=== PATIENT | male | born 1990 | race Caucasian/White ===

== ENCOUNTER 2024-08-15 12:07 | Inpatient (IN) | payer SELFPAY ==
[~2024-08-15] VITALS: Ht 177.8 cm; Wt 72.1 kg
[2024-08-15] VITALS (10 sets, daily range): BP systolic 100–143; BP diastolic 42–84; PULSE 63–92; RESP 16–20; TEMP 36.5–37.4; O2SAT 96–99
[2024-08-15] MEDS: MORPHINE SULFATE 4 MG/ML INJ (FOR IV/IM USE) IV STA (12:39)
[2024-08-15 12:40] LABS: BASOPHILS % 0.4 % (0.0-2.0); EOSINOPHILS % 0.2 % (0.0-5.0); HEMATOCRIT. 43.7 % (42.0-52.0); HEMOGLOBIN. 14.8 g/dL (14.0-18.0); LYMPHOCYTES % 16.2 % (20.0-50.0); MEAN CORPUSCULAR HEMOGLOBIN 27.2 pg (28.0-32.0); MEAN CORPUSCULAR HGB CONC 33.9 g/dL (31.0-37.0); MEAN CORPUSCULAR VOLUME 80.1 fL (80.0-94.0); MEAN PLATELET VOLUME 9.6 fl (7.4-10.4); MONOCYTES % 3.5 % (2.0-8.0); NEUTROPHILS % 79.7 % (40.0-76.0); PLATELET 211 x1000/uL (130-400); RED BLOOD CELL COUNT 5.46 mill/uL (4.7-6.1); RED CELL DISTRIBUTION WIDTH 14.7 % (11.6-14.6); WHITE BLOOD COUNT 12.1 x1000/uL (4.5-11.0)
[2024-08-15] MEDS: ONDANSETRON HCL 4MG/2ML INJ IV STA (12:40)
[2024-08-15 12:46] LABS: CHLORIDE 106 mEq/L (98-107); POTASSIUM 3.2 mEq/L (3.5-5.1); SODIUM 137 mEq/L (136-145)
[2024-08-15 12:47] LABS: CARBON DIOXIDE 20 mEq/L (21-32)
[2024-08-15 12:48] LABS: CALCIUM 9.3 mg/dL (8.7-10.4)
[2024-08-15 12:52] LABS: CREATININE 0.9 mg/dL (0.6-1.3)
[2024-08-15 12:53] LABS: GLUCOSE 152 mg/dL (70-105); UREA NITROGEN BLOOD 17 mg/dL (9-23)
[2024-08-15 12:54] LABS: ALANINE AMINOTRANSFERASE 38 IU/L (10-49); ASPARTATE AMINOTRANSFERASE 23 IU/L (<34)
[2024-08-15 12:55] LABS: ALBUMIN 4.7 g/dL (3.2-4.8); BILIRUBIN DIRECT 0.2 mg/dL (<=3.0); BILIRUBIN TOTAL 0.8 mg/dL (0.1-1.0); PROTEIN TOTAL 8.1 g/dL (6.0-8.3)
[2024-08-15 12:58] LABS: TROPONIN I HIGH SENSITIVITY < 4 ng/L (3.0-53)
[2024-08-15 13:07] LABS: PROTHROMBIN TIME 10.9 sec (9.6-11.0)
[2024-08-15] MEDS ORDERED: AZITHROMYCIN 500MG/250ML 250 ML IV STA (13:43)
[2024-08-15] MEDS: CEFTRIAXONE 1GM/50ML 50 ML IV ONE (14:23)
[2024-08-15] MEDS: METRONIDAZOLE 500 MG PREMIX 100 ML IV ONE (14:47)
[2024-08-15] MEDS ORDERED: ONDANSETRON HCL 4MG/2ML INJ IV PRN ×3 (16:00→18:45)
[2024-08-15] MEDS ORDERED: NA PHOS,M-B/NA PHOS,DI-BA ENEMA 118ML PR PRN (16:00)
[2024-08-15] MEDS ORDERED: ACETAMINOPHEN 325MG TABLET PO PRN ×2 (16:00)
[2024-08-15] MEDS ORDERED: CLONIDINE 0.1MG TABLET PO PRN (16:00)
[2024-08-15] MEDS ORDERED: GUAIFENESIN 200MG/10ML SUGAR FREE UDC PO PRN (16:00)
[2024-08-15] MEDS ORDERED: DIPHENHYDRAMINE 50MG/ML VIAL IV PRN (16:00)
[2024-08-15] MEDS ORDERED: MAGNESIUM/ALUMINUM HYDROXIDE/SIMETHICONE 30ML UDC PO PRN (16:00)
[2024-08-15] MEDS ORDERED: IPRATROPIUM/ALBUTEROL 0.5-3(2.5)MG/3ML NEB HHN PRN (16:00)
[2024-08-15] MEDS: PANTOPRAZOLE SODIUM 40 MG/VIAL IV SCH (16:15)
[2024-08-15] MEDS ORDERED: SKIN ADHESIVE 0.7 GM EA TOP ONE (16:29)
[2024-08-15] MEDS ORDERED: BUPIVACAINE HCL/PF 0.5% (5MG/ML) 10ML ONE (16:29)
[2024-08-15] MEDS: LACTATED RINGERS 1,000 ML IV SCH (16:30)
[2024-08-15] MEDS: MORPHINE SULFATE 2 MG/ML INJ (NOT FOR IM USE) IV NR (16:50)
[2024-08-15] MEDS: CEFTRIAXONE 2GM/50ML 50 ML IV SCH (18:00)
[2024-08-15] MEDS ORDERED: SUGAMMADEX SODIUM 200MG/2ML VIAL IV ONE (18:12)
[2024-08-15] MEDS ORDERED: ACETAMINOPHEN 1000MG/100ML 100 ML IV ONE (18:13)
[2024-08-15] MEDS ORDERED: HYDROMORPHONE HCL/PF 1MG/ML INJ IV PRN (18:30)
[2024-08-15] MEDS: IBUPROFEN 400MG TABLET PO SCH (21:20)
[2024-08-15] MEDS: METRONIDAZOLE 500 MG PREMIX 100 ML IV SCH (21:36)
[2024-08-16] VITALS: BP 99/56; PULSE 71; RESP 17; TEMP 36.7; O2SAT 99
[2024-08-16 04:00] VITALS: BP 104/63; PULSE 73; RESP 17; TEMP 36.8; O2SAT 98
[2024-08-16 06:27] LABS: BASOPHILS % 0.1 % (0.0-2.0); HEMATOCRIT. 38.1 % (42.0-52.0); HEMOGLOBIN. 13.1 g/dL (14.0-18.0); LYMPHOCYTES % 13.3 % (20.0-50.0); MEAN CORPUSCULAR HEMOGLOBIN 27.6 pg (28.0-32.0); MEAN CORPUSCULAR HGB CONC 34.3 g/dL (31.0-37.0); MEAN CORPUSCULAR VOLUME 80.5 fL (80.0-94.0); MEAN PLATELET VOLUME 9.7 fl (7.4-10.4); MONOCYTES % 5.7 % (2.0-8.0); NEUTROPHILS % 80.9 % (40.0-76.0); PLATELET 175 x1000/uL (130-400); RED BLOOD CELL COUNT 4.73 mill/uL (4.7-6.1); RED CELL DISTRIBUTION WIDTH 14.8 % (11.6-14.6); WHITE BLOOD COUNT 9.9 x1000/uL (4.5-11.0)
[2024-08-16 06:37] LABS: CHLORIDE 107 mEq/L (98-107); SODIUM 141 mEq/L (136-145)
[2024-08-16 06:38] LABS: CALCIUM 8.9 mg/dL (8.7-10.4); CARBON DIOXIDE 25 mEq/L (21-32)
[2024-08-16 06:43] LABS: GLUCOSE 139 mg/dL (70-105); UREA NITROGEN BLOOD 16 mg/dL (9-23)
[2024-08-16 07:45] VITALS: BP 100/59; PULSE 70; RESP 20; TEMP 36.8; O2SAT 100
[2024-08-16 12:00] VITALS: BP 105/65; PULSE 63; RESP 21; TEMP 36.6; O2SAT 100
[2024-08-16 13:45] VITALS: RESP 21
[2024-08-16] MEDS ORDERED: IBUP-2028 MT (14:37)
[2024-08-16 15:36] VITALS: BP 104/72; PULSE 70; TEMP 97.9; O2SAT 100
[2024-08-17] MEDS ORDERED: FAMOTIDINE 20MG/2ML VIAL IV SCH (09:00)
== END 2024-08-16 16:18 | disposition home or self-care (01) | DRG 234 ==
LOC: ER 12:07 → 7EST 14:41
PROVIDERS: ADMIT Internal Medicine; ATTEND Internal Medicine
PROC: 0DTJ4ZZ Resection of Appendix, Percutaneous Endoscopic Approach (ICD-10-PCS; principal; 2024-08-16)
DX: K35.80 Unspecified acute appendicitis (principal); E87.6 Hypokalemia; Z79.899 Other long term (current) drug therapy
CPT/HCPCS: 36415; 74176; 80048; 80076; 84484; 85025; 88304; 93005; 99285; J0665; J0696; J2270; J2405; J2470; J3490; J7030; J7120; J0131